=== PATIENT | male | born 1995 | race Caucasian/White ===

== ENCOUNTER 2020-11-16 17:51 | Outpatient (CLI) | payer BC, SELFPAY ==
--- NOTE | ~2020-11-16 | XR_ITS ---
EXAMINATION: XR chest 2V EXAM DATE: 11/16/2020 18:06 INDICATION: Sharp right to midsternal chest pain. TECHNIQUE: Frontal and lateral projections of the chest obtained and reviewed. Comparison is made to prior examination from 04/27/2019. FINDINGS: The lungs are clear. There are no pleural effusions. The cardiomediastinal silhouette is within normal limits. There is no pneumothorax suspected. The bones and soft tissues are unremarkab le. IMPRESSION: Normal chest x-ray exam. Reviewed, dictated and finalized at location A. OR LEAD PROJECT MANAGER IMPRESSION: Normal chest x-ray exam.
--- NOTE | 2020-11-16 17:54 | ECG_ITS ---
Measurements Intervals [place] Rate: 66 P: 57 DE: 124 QRS: 74 QRSD: 93 T: 60 QT: 369 QTc: 389 Interpretive Statements SINUS RHYTHM NORMAL ECG Electronically Signed On 11-16-2020 19:05:33 STUDY ASSISTANT by Jin Montenegro D.O.
== END 2020-11-16 17:52 | disposition home or self-care (01) ==
LOC: CHSIMG 17:54
PROVIDERS: PCP Family Medicine; Visit Provider Family Medicine
DX: R07.89 Other chest pain (principal)
CPT/HCPCS: 71046; 93005

== ENCOUNTER 2021-01-30 07:17 | Outpatient (CLI) | payer OTHER, SELFPAY ==
--- NOTE | ~2021-01-30 | CT_ITS ---
EXAMINATION: CT abdomen pelvis w con EXAM DATE: 01/30/2021 07:50 INDICATION: R10.30 - Lower abdominal pain, unspecified RLQ, LLQ, and groin pain w/ nausea and irregul ar bowel movements . TECHNIQUE: Spiral CT of the abdomen and pelvis was performed following intravenous injection of 100 m L Omnipaque 350. Axial, coronal and sagittal images of the abdomen and pelvis were reviewed. The do se-length product (DLP) for this examination was 264.85 mGy-cm. The exposure was tailored according to patient size (auto mA exposure control), and iterative reconstruction (ASIR) was used as additiona l dose reduction technique. Comparison is made to prior examination from 08/12/2006. FINDINGS: The liver, spleen, adrenal glands and pancreas are unremarkable. Gallbladder is unremarkab le. No biliary obstruction. Portal and splenic veins are patent. Kidneys enhance symmetrically. T here is no hydronephrosis. The prostate is unremarkable. The bladder is unremarkable. There is no retroperitoneal or pelvic lymphadenopathy. No inguinal hernias. The appendix is normal. The stomach and small bowel are unremarkable. There is moderate amount of c olonic stool. No free intraperitoneal gas. The heart is normal in size. There are no pericardial or pleural effusions. The lung bases are unremarkable. The bones are unremarkable. IMPRESSION: 1. Unremarkable CT abdomen pelvis examination. Reviewed, dictated and finalized at location D.
== END 2021-01-30 07:18 | disposition home or self-care (01) ==
PROVIDERS: PCP Family Medicine; Visit Provider Family Medicine
DX: R10.30 Lower abdominal pain, unspecified (principal)
CPT/HCPCS: 74177; Q9967

== ENCOUNTER 2021-07-26 15:09 | Emergency (ER) | payer BC, OTHER, SELFPAY ==
[2021-07-26 15:37] VITALS: BP 163/75; PULSE 81; TEMP 36.4; O2SAT 98
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
[2021-07-26] MEDS: TETANUS,DIPHTHERIA,AC PERTUSSIS ADULT 0.5 ML (ADACEL) IM (15:50)
== END 2021-07-26 15:54 | disposition home or self-care (01) ==
PROVIDERS: Emergency Provider Emergency Medicine; PCP Family Medicine
DX: M79.5 Residual foreign body in soft tissue (principal)
CPT/HCPCS: 90471; 90715; 99282

== ENCOUNTER 2022-09-19 23:09 | Emergency (ER) | payer BC, OTHER, SELFPAY ==
--- NOTE | ~2022-09-19 | XR_ITS ---
EXAMINATION: XR ribs LT 2V DATE: 09/19/2022 23:25 INDICATION: Left rib pain. Cough. TECHNIQUE: 2 views of the left ribs on 3 radiographs were obtained. COMPARISON: Chest 2 views 11/16/2020, CT abdomen and pelvis 01/30/2021 FINDINGS: There are airspace opacities in left lower lung zone. No left-sided pleural effusion or pne umothorax. The heart size is normal. There is an old healed fracture of left clavicle. IMPRESSION: 1. No rib fracture. 2. Airspace opacities in left lower lung zone, consistent with pneumonia. Reviewed, dictated and finalized at location A. ESTATE ADMINISTRATIVE ASSISTANT
[2022-09-19 23:17] VITALS: BP 129/68; PULSE 109; RESP 18; TEMP 38; O2SAT 100
[2022-09-19] MEDS: KETOROLAC (*BKC) 60 MG/2 ML VIAL IM (23:30)
--- NOTE | 2022-09-19 23:57 | ED.GENADULT ---
HPI - General Adult General Chief complaint: Back Pain/Injury Stated complaint: Abdominal Pain Time Seen by Provider: 09/19/22 23:12 Source: patient Mode of arrival: ambulatory Limitations: no limitations History of Present Illness HPI narrative: this is a 27 gentleman that presents with pain intensified today after he has had a cough last 2 to 3 days cough is nonproductive with no shortness of breath, with temperature 100.4, with no dysuria no hematuria no flank pain no chest pain no abdominal pain no nausea vomiting. Patient is a smoker, cough is nonproductive. Onset (ago): day(s) Radiation: other ( left rib area) Severity: moderate Related Data Allergies Allergy/AdvReac Type Severity Reaction Status Date / Time No Known Allergies Allergy Verified 09/19/22 23:22 Review of Systems Review of Systems: All systems reviewed & are unremarkable except as noted in HPI and below PMFSH Past Medical History Medical History Patient denies medical problems Exam Const: General: healthy appearing Nutritional Appearance: well nourished Orientation/consciousness: patient oriented x3 Limitations: no limitations HENMT: Head: normal to inspection Face and sinus: normal facial exam Mouth: Yes Normal oral and palatal mucosa present Teeth and gingiva: dentition normal Eyes: Conjunctivae: conjunctivae normal Pupils: Equal, round and reactive pupils present EOM: EOMs intact bilaterally Neck: Neck: normal visual inspection Chest: Chest palpation & inspection: normal inspection of the chest Resp: Effort & Inspection: normal respiratory effort Auscultation: clear to auscultation bilaterally Cardio: Rate: regular rate Rhythm: regular rhythm GI: GI Palp: Yes Soft to palpation Auscultation: normal bowel sounds : General: Yes bladder normal to palpation Urinary Catheter: Urinary Catheter: patent and draining Back/Spine/Pelvis: Back: no CVA tenderness Skin: General skin exam: normal color Rashes: no rashes Wounds: no wounds Neuro: General: patient oriented x3 Cranial nerves: Yes Nystagmus not present Speech: normal speech Gait exam (Neuro): Normal gait present Extrem: General: normal to inspection Psych: Mental Status: mental status grossly normal Affect: normal affect Course Course Emergency Course: patient received a dose of Toradol IM, x-ray of the left rib area reviewed. Vital Signs Vital signs: Vital Signs Oxygen Delivery Room Air 09/19/22 23:10 Temperature 38.0 C H 09/19/22 23:17 Pulse Rate 109 H 09/19/22 23:17 Respiratory Rate 18 09/19/22 23:17 Blood Pressure 129/68 09/19/22 23:17 Pulse Oximetry 100 09/19/22 23:17 Oxygen Delivery Room Air 09/19/22 23:17 Medical Decision Making Vital Signs Vital Signs: Vital Signs Oxygen Delivery Room Air 09/19/22 23:10 Temperature 38.0 C H 09/19/22 23:17 Pulse Rate 109 H 09/19/22 23:17 Respiratory Rate 18 09/19/22 23:17 Blood Pressure 129/68 09/19/22 23:17 Pulse Oximetry 100 09/19/22 23:17 Oxygen Delivery Room Air 09/19/22 23:17 Critical Care Time Critical Care Time Critical Care Time: No Discharge Plan Discharge Clinical Impression: Bronchitis Rib sprain Qualifiers: Encounter type: initial encounter Qualified Code(s): S23.41XA - Sprain of ribs, initial encounter Patient Disposition: Home, Self-Care Condition: Stable Instructions: Antibiotic Form, Acute Bronchitis (ED), Musculoskeletal Pain (ED) Additional Instructions: take medicine as prescribed and if symptoms persist or worsen should follow primary care physician. Prescriptions: New azithromycin [Zithromax Z-Kenny] 250 mg tablet See Rx Instructions .ROUTE .COMPLEX Qty: 6 0RF Rx Instructions: For 250 mg dose pack: take 500 mg today (day 1), then 250 mg for 4 days (days 2-5) tramadol 50 mg tablet 50 mg PO Q6H PRN (Reason: pain) Qty: 20 0RF
[2022-09-20] MEDS: AZITHROMYCIN 250 MG TABLET 1000 MG PO (00:16)
[2022-09-20 00:25] VITALS: PULSE 100; RESP 18; TEMP 37.7; O2SAT 98
== END 2022-09-20 00:25 | disposition home or self-care (01) ==
PROVIDERS: Emergency Provider Emergency Medicine
DX: S23.41XA Sprain of ribs, initial encounter (principal); J40 Bronchitis, not specified as acute or chronic; X58.XXXA Exposure to other specified factors, initial encounter
CPT/HCPCS: 71100; 96372; 99283; A9270; J1885

== ENCOUNTER 2024-02-01 07:26 | Emergency (ER) | payer BC, OTHER, SELFPAY ==
--- NOTE | ~2024-02-01 | XR_ITS ---
EXAMINATION: XR hand RT min 3V DATE: 02/01/2024 07:50 INDICATION: Right thumb laceration and pain and swelling. TECHNIQUE: 3 views of right hand were obtained. COMPARISON: Right hand radiographs 10/17/2012 FINDINGS: Bone alignment is normal. No fracture. There is no evidence of osteoarthritis. Joint spaces are normal. There is a laceration of the thumb with soft tissue swelling. IMPRESSION: 1. No fracture or radiopaque foreign body. Reviewed, dictated and finalized at location A.
[2024-02-01 07:26] VITALS: BP 153/94; PULSE 97; RESP 18; TEMP 36.6; O2SAT 99
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
[2024-02-01] MEDS: SULFAMETHOXAZOLE/TRIMETHOPRIM 800/160 MG DS TABLET 1 TAB PO (07:55)
[2024-02-01] MEDS: levoFLOXacin 500 MG/D5W 100 ML 500 MG/100 ML BAG 100 MG IVPB (07:55)
[2024-02-01 08:03] LABS: Basophils Absolute Auto 0.03 K/mm3 (0.00-0.10); Basophils Percent Auto 0.2 % (0.0-1.0); Eosinophils Absolute Auto 0.12 K/mm3 (0.02-0.50); Eosinophils Percent Auto 0.9 % (1.0-6.0); Hematocrit 39.3 % (40.0-54.0); Hemoglobin 13.5 g/dL (14.0-18.0); Immature Granulocyte Absolute 0.03 K/mm3 (0.00-0.00); Immature Granulocyte Percent A 0.2 % (0.0-0.0); Lymphocytes Absolute Auto 1.91 K/mm3 (1.10-4.50); Lymphocytes Percent Auto 13.7 % (18.0-42.0); Mean Corpuscular HGB Conc 34.4 g/dL (32-36); Mean Corpuscular Hemoglobin 32.7 pg (27.0-31.0); Mean Corpuscular Volume 95.2 fL (78.0-102.0); Monocytes Absolute Auto 0.93 K/mm3 (0.10-0.90); Monocytes Percent Auto 6.7 % (2.0-11.0); Neutrophils Absolute Auto 10.95 K/mm3 (1.70-7.20); Neutrophils Percent Auto 78.3 % (50.0-70.0); Platelet Count Result 268 K/mm3 (150-420); Red Blood Count 4.13 M/mm3 (4.70-6.10); Red Cell Distribution Width 11.7 % (11.6-14.4)
[2024-02-01 08:20] LABS: Lactic Acid Reflex 2.5 mmol/L (0.4-2.0)
[2024-02-01 08:26] LABS: Alanine Aminotransferase 24 U/L (16-63); Albumin Level 4.2 g/dL (3.4-5.0); Alkaline Phosphatase 62 U/L (46-116); Anion Gap 11 mmol/L (4-12); Aspartate Amino Transferase 18 U/L (15-37); Bilirubin,Total 0.2 mg/dL (0.00-1.00); Blood Urea Nitrogen 17 mg/dL (7-18); Calcium 9.1 mg/dL (8.5-10.1); Carbon Dioxide 28 mmol/L (21-32); Chloride 101 mmol/L (98-108); Estimated CRCL calculation 82 ml/min; Estimated Glomerular Filt Rate > 60; Glucose 133 mg/dL (70-99); Osmolality Calculated 293 mOsm/kg (285-295); Potassium 3.8 mmol/L (3.5-5.1); Sodium 140 mmol/L (136-145); Total Protein 7.2 g/dL (6.4-8.2)
[2024-02-01 09:20] VITALS: BP 140/79; PULSE 91; RESP 16; TEMP 36.1; O2SAT 100
[2024-02-01 11:00] LABS: Reflex Lactic Acid Yes or No Add Lactic
--- NOTE | 2024-02-01 14:11 | PC.NURSE ---
[facility] called, pt has not showed for admission. call made to emergency contact, mother, christiano ramirez. stated pt was not going to go to [facility] even after extensive discharge instructions and encouragement to go. call placed to alisia at [facility] to Cancel bed.
--- NOTE | 2024-02-03 12:45 | PC.NURSE ---
PRELIMINARY WOUND CULTURE AEROBIC RESULTS: GRAM STAIN RARE, WHITE BLOOD CELLS SEEN, MODERATE GRAM POSITIVE COCCI IN CHAINS. ISOLATE 1: HEAVY GROWTH OF STAPHYLOCOCCUS AUREUS. PER DR CARROLL, PT NEEDS TO RETURN TO AN ER FOR EVALUATION, PT WAS TO BE TRANSFERRED TO [facility] BY [facility] FOR HAND SURGERY INITIALLY AND NEVER SHOWED UP. ATTEMPTED TO CONTACT PT MULTIPLE TIMES, UNABLE TO LEAVE MESSAGE, VOICEMAIL IS NOT SET UP. LETTER SENT ON 02/03/2024.
--- NOTE | 2024-02-04 12:10 | PC.NURSE ---
FINAL AEROBIC WOUND CULTURE RESULTS: ISOLATE 1: HEAVY GROWTH OF MRSA. LETTER WAS SENT TO PT ON 02/03/24 TO RETURN CALL, UNABLE TO CONTACT PT BY PHONE, UNABLE TO LEAVE A VOICEMAIL.
--- NOTE | 2024-02-07 12:24 | PC.NURSE ---
02/07/24 FINAL BLOOD CULTURE NO GROWTH AFTER 5 DAYS
== END 2024-02-01 09:33 | disposition left against medical advice (07) ==
PROVIDERS: Emergency Provider Emergency Medicine
DX: M65.9 Synovitis and tenosynovitis, unspecified (principal); L03.011 Cellulitis of right finger; S61.011A Laceration without foreign body of right thumb without damage to nail, initial encounter; W25.XXXA Contact with sharp glass, initial encounter; F17.210 Nicotine dependence, cigarettes, uncomplicated
CPT/HCPCS: 36415; 73130; 80053; 83605; 85025; 87040; 87070; 87147; 87181; 87205; 96365; 99284; A9270; J1956